=== PATIENT | male | born 1975 | race Caucasian/White ===

== ENCOUNTER → 2019-04-23 | Outpatient (CLI) | payer OTHER ==
--- NOTE | 2019-04-23 17:26 | REP ---
MRI lumbar spine: 04/23/2019. Indication: Low back pain. Comparison: None. Technique: Multiplanar short and long TR sequences of the lumbar spine were obtained. Findings: There is minimal retrolisthesis of L2 and L3, L3 and L4 and L4 and L5. Disc space narrowing is present throughout. There is disc desiccation at L3/L4, L4/L5 and L5/S1. No worrisome marrow signal is present. The visualized paraspinal soft tissues are unremarkable. L1/L2: There is no focal disc herniation or significant spinal canal / neural foraminal narrowing. L2/L3: Disc and spur complex is present most pronounced anteriorly without significant spinal canal or neural foraminal narrowing. L3/L4: Diffuse disc bulge and bilateral facet arthropathy are present without significant spinal canal or neural foraminal narrowing. L4/L5: Diffuse disc and spur complex and bilateral facet arthropathy are present without significant spinal canal or neural foraminal narrowing. L5/S1: Minimal diffuse disc bulge and bilateral facet arthropathy are present without significant spinal canal narrowing. There is mild narrowing of the neural foramen bilaterally. Impression: No focal disc herniation or areas of significant spinal canal / neural foraminal narrowing. Electronically Signed by Rich Elkins DO 04/23/2019 05:17 P
== END ==
LOC: M RAD 14:42
PROVIDERS: ATTEND Physician Assistant
DX: M51.37 Other intervertebral disc degeneration, lumbosacral region (principal)